=== PATIENT | male | born 1950 | race Caucasian/White ===

== ENCOUNTER 2017-10-03 18:03 | Emergency (ER) | payer SELFPAY ==
[~2017-10-03] VITALS: Ht 175.3 cm; Wt 88.8 kg
[~2017-10-03 18:03] MED LIST: ASPI-650 PO; CARB1TAB43 PO; METF10002 PO; PIOG15TA3 PO; PRAM0.37 PO; PRAM0.373 PO; PRAV40TA2 PO; VERA120T5 PO
[2017-10-03] MEDS ORDERED: SODIUM CHLORIDE FLUSH 10ML SYR IVF ONE (18:30)
[2017-10-03] MEDS ORDERED: ONDANSETRON ODT 4 MG PO ONE (18:30)
[2017-10-03] MEDS ORDERED: MECLIZINE CHEWABLE 25 MG TAB PO ONE (18:30)
[2017-10-03] MEDS ORDERED: MECLIZINE CHEWABLE 25 MG TAB ONE (18:38)
[2017-10-03] MEDS ORDERED: ONDANSETRON ODT 4 MG ONE (18:38)
[2017-10-03 18:47] LABS: BASOPHILS # (AUTO) 0.01 x10^3/uL (0-0.1); BASOPHILS % (AUTO) 0 % (0-1); EOSINOPHILS # (AUTO) 0.15 x10^3/uL (0-0.4); EOSINOPHILS % (AUTO) 2 % (1-7); LYMPHOCYTES # (AUTO) 1.11 x10^3/uL (1-3.4); LYMPHOCYTES % (AUTO) 16 % (22-44); MD NO; MEAN CORPUSCULAR HEMOGLOBIN 31.6 pg (27.5-34.5); MEAN CORPUSCULAR HGB CONC 33.9 g/dL (33.2-36.2); MEAN CORPUSCULAR VOLUME 93.2 fL (81-97); MEAN PLATELET VOLUME 6.8 fL (7.4-10.4); MONOCYTES # (AUTO) 0.54 x10^3/uL (0.2-0.8); MONOCYTES % (AUTO) 8 % (2-9); NEUTROPHILS # (AUTO) 5.21 x10^3/uL (1.8-6.8); NEUTROPHILS % (AUTO) 74 % (42-75); PLATELET COUNT 205 x10^3/uL (130-400); RED BLOOD COUNT 4.68 x10^6/uL (4.38-5.82); RED CELL DISTRIBUTION WIDTH 13.5 % (9.4-14.8)
[2017-10-03] MEDS ORDERED: CARB1TAB25 PO (18:51)
[2017-10-03] MEDS ORDERED: CARB1TAB44 PO (18:51)
[2017-10-03 18:58] LABS: ALANINE AMINOTRANSFERASE 20 U/L (12-78); ALBUMIN 3.9 g/dL (3.4-5.0); ANION GAP 9 mmol/L (5-15); CALCIUM 8.9 mg/dL (8.5-10.1); CHLORIDE 106 mmol/L (98-107); CREATININE 0.86 mg/dL (0.7-1.3)
[2017-10-03 19:02] LABS: ALKALINE PHOSPHATASE 78 U/L (45-117); BILIRUBIN,TOTAL 0.8 mg/dL (0.2-1.0); TOTAL PROTEIN 7.2 g/dL (6.4-8.2); TROPONIN I < 0.015 ng/mL (0.000-0.045)
[2017-10-03 20:06] VITALS: BP 133/86
== END 2017-10-03 20:15 | disposition home or self-care (01) ==
LOC: ED 20:09
DX: R42 Dizziness and giddiness (principal); I10 Essential (primary) hypertension; E11.9 Type 2 diabetes mellitus without complications; G43.909 Migraine, unspecified, not intractable, without status migrainosus; J01.10 Acute frontal sinusitis, unspecified; Z86.73 Personal history of transient ischemic attack (TIA), and cerebral infarction without residual deficits
CPT/HCPCS: 36415; 70450; 71045; 80053; 84484; 85025; 93005; 99285; Q0162

== ENCOUNTER → 2019-07-12 | Outpatient (CLI) | payer MEDICARE ==
[~2019-07-12] MED LIST changes: +CARB1TAB25 PO; +CARB1TAB44 PO; -PIOG15TA3 PO; +PIOG15TA66 PO; -PRAM0.373 PO; +PRAM0.375 PO; +VERA120T13 PO; -VERA120T5 PO
== END | disposition home or self-care (01) ==
LOC: RAD 06:53
PROVIDERS: ATTEND Internal Medicine
DX: M51.37 Other intervertebral disc degeneration, lumbosacral region (principal); M51.25 Other intervertebral disc displacement, thoracolumbar region; M25.78 Osteophyte, vertebrae; M51.46 Schmorl's nodes, lumbar region; M48.05 Spinal stenosis, thoracolumbar region; E88.2 Lipomatosis, not elsewhere classified
CPT/HCPCS: 72148